=== PATIENT | female | born 1990 | race Caucasian/White ===

== ENCOUNTER 2017-05-16 21:38 | Emergency (ER) | payer BC ==
[2017-05-16] MEDS ORDERED: Amoxicillin 500 MG Cap ONE (21:50)
[2017-05-16] MEDS: Sodium Chloride 0.9% 1,000 ML IV ONE (22:32)
--- NOTE | 2017-05-17 01:56 | ER ---
Date of Service: 05/16/2017 HISTORY OF PRESENT ILLNESS: A 26-year-old female here with complaints of not feeling well since last Sunday night. She started out with a headache. By Sunday, she was having problems with sore throat and some episodes of running a fever. She states one time her fever showed a real high reading. She states that she did feel warm at the time , but she was alert and did not feel nauseated or anything, so she did not come in. Her temperature has only been slightly elevated today in the 99 range. She has had ongoing problems with a sore throat, some swollen glands in her neck. She is concerned about strep throat. She did get lightheaded tonight and thinks she may have passed out, she was sitting on the bed and she woke up lying down on the bed. She had been holding her 6-week-old child who was lying on the floor when she woke up. She states the child was whimpering, but not crying loudly. She noticed two small red areas on top of the patient's head. Otherwise, the patient's child has been doing okay and is eating well since the incident happened this evening. The patient states that she feels slightly weak in her extremities, and she has not had any problems with coughing or nausea or vomiting. She is not currently on any medications other than [id number] medications which she has been taking for fever. OBJECTIVE: GENERAL APPEARANCE: The patient is awake and alert. No obvious distress. VITAL SIGNS: Reviewed. Blood pressure 105/56, temperature is 99.8. The patient states that she has been drinking okay. HEENT: Eyes, pupils equal, round, and reactive to light. EOMs are intact without strabismus, nystagmus, or ptosis. Head is normocephalic. There is no sign of any head or neck injury. Ears, TMs are dull, otherwise normal. Nares are patent. Oral mucous membranes moist. Tonsils are both enlarged and mildly injected. NECK: Supple with tender cervical lymphadenopathy noted. LUNGS: Clear. No CVA tenderness is noted with percussion. CARDIAC: Heart sounds distinct without murmurs. ABDOMEN: Soft, nontender. Bowel sounds are present. SKIN: Warm and dry. LAB AND X-RAY: Labs done today include a CBC showing a white count of 11.5. Neutrophils are also elevated. Comprehensive metabolic panel is unremarkable. Strep ID is positive. DIAGNOSES: 1. Strep tonsillitis. 2. Hypotension. 3. Syncopal episode, most likely related to hypotension. TREATMENT PLAN: The patient will be started on amoxicillin 500 mg t.i.d. for 10 days. Strep precautions were discussed. She will be given 1 L of normal saline here as a bolus. The patient will be monitored closely until the IV fluids have been infused and see if her blood pressure improves. Last time I checked with the patient, she had about 500 mL infused and she states that she was feeling better already. If she continues to improve, she will be discharged shortly. I will also examine the patient's this evening. CRS/MODL /[id number] MTDD
== END 2017-05-17 00:10 | disposition home or self-care (01) ==
LOC: LB.ED 21:38
DX: J03.00 Acute streptococcal tonsillitis, unspecified (principal); I95.9 Hypotension, unspecified
CPT/HCPCS: 36415; 80053; 85025; 87430; 96360; 99283-25; A9270-GY; J7040